=== PATIENT | female | born 1975 | race Caucasian/White ===

== ENCOUNTER 2017-04-24 17:37 | Emergency (ER) | payer OTHER ==
[2017-04-24 17:51] VITALS: RESP 16
--- NOTE | 2017-04-24 18:15 | CPEKG ---
Heart Rate: 83 RR Interval: 723 P-R Interval: 168 QRSD Interval: 98 QT Interval: 364 QTC Interval: 428 P Pearson: 56 QRS Pearson: 31 T Wave Pearson: 33 EKG Severity - NORMAL ECG - EKG Impression: SINUS RHYTHM Electronically Signed By: Tiki Fischer 24-Apr-2017 21:58:12
[2017-04-24 18:18] LABS: % IMMATURE GRANULYOCYTES 0.4 % (0.0-1.1); ABSOLUTE IMMATURE GRANULOCYTES 0.04 10^3/uL (0.00-0.10); ADD DIFF? NO; ADD MORPH? NO; ADD SCAN? NO; ATYPICAL LYMPHOCYTE FLAG 10 (0-99); FRAGMENT RBC FLAG 0 (0-99); HEMATOCRIT 37.4 % (38.0-47.0); LEFT SHIFT FLG 0 (0-99); LIPEMIA HEMOLYSIS FLAG 90 (0-99); MEAN CELL HEMOGLOBIN 31.1 pg (27.9-34.1); MEAN CELL HEMOGLOBIN CONCENTR. 34.8 g/dL (32.4-36.7); MEAN CELL VOLUME 89.5 fL (81.5-99.8); MEAN PLATELET VOLUME 9.3 fL (8.7-11.7); PLATELET CLUMPS FLAG 10 (0-99); PLATELET COUNT 306 10^3/uL (150-400); RED BLOOD CELL COUNT 4.18 10^6/uL (4.18-5.33)
[2017-04-24 18:32] LABS: ANION GAP 11 mEq/L (8-16); CALCIUM 9.4 mg/dL (8.5-10.4); CARBON DIOXIDE 25 mEq/l (22-31); CHLORIDE 102 mEq/L (97-110); GLOMERULAR FILTRATION RATE > 60; GLUCOSE 114 mg/dL (70-100); POTASSIUM 3.8 mEq/L (3.5-5.2); SODIUM 138 mEq/L (134-144)
[2017-04-24 18:43] LABS: TROPONIN I < 0.012 ng/mL (0.000-0.034)
--- NOTE | 2017-04-24 18:58 | EDPHY ---
H & P Stated Complaint: L ant sharp CP x1 day worse with deep breaths - Personal History LMP (Females 10-55): 1-7 Days Ago Current Tetanus/Diphtheria Vaccine: Unsure Current Tetanus Diphtheria and Acellular Pertussis (TDAP): Unsure - Medical/Surgical History Hx Asthma: No Hx Chronic Respiratory Disease: No Hx Diabetes: No Hx Cardiac Disease: No Hx Renal Disease: No Hx Cirrhosis: No Hx Alcoholism: No Hx HIV/AIDS: No Hx Splenectomy or Spleen Trauma: No Other PMH: denies - Social History Smoking Status: Never smoked Time Seen by Provider: 04/24/17 17:57 HPI/ROS: Chief complaint: Left shoulder and chest pain History of present illness: This is a 41-year-old female who presents to the emergency department for left shoulder and chest pain. Patient reports 2 days ago she woke up and her left shoulder was bothering her. She states this remained sore since then. It is worse with movement. However today the pain started to radiate down into her chest. Again she describes a soreness. Soreness is worse with movement, laughing and deep breathing. She denies associated shortness of breath at rest. She denies fever or cold symptoms. She denies pain or swelling in her legs. Review of systems: A 10 point review of systems was obtained and other than described above was negative (Michael Polanco) - Physical Exam Exam: General Appearance: Alert, nontoxic. Eyes: Pupils equal and round no pallor or injection. ENT, Mouth: Mucous membranes moist. Respiratory: There are no retractions, lungs are clear to auscultation. Cardiovascular: Regular rate and rhythm. Gastrointestinal: Abdomen is soft and non tender, no masses, bowel sounds normal. Neurological: Alert and oriented x4. Cranial nerves 2-12 grossly intact. Strength and sensation intact and symmetrical. Skin: Warm and dry, no rashes. Musculoskeletal: Neck is supple non tender. Head anterior shoulder is mildly tender to palpation. Left lateral chest wall is also tender to palpation without crepitus or subcutaneous air. Extremities are symmetrical, full range of motion. Psychiatric: Patient is oriented X 3, there is no agitation. (Michael Polanco) Constitutional: Initial Vital Signs Temperature (C) 37.2 C 04/24/17 17:48 Heart Rate 82 04/24/17 17:48 Respiratory Rate 16 04/24/17 17:48 Blood Pressure 123/76 H 04/24/17 17:48 O2 Sat (%) 98 04/24/17 17:48 O2 Delivery Mode Room Air Allergies/Adverse Reactions: No Known Allergies Allergy (Verified 04/24/17 17:46) Home Medications: Medication Instructions Recorded NK [No Known Home Meds] 04/24/17 Medical Decision Making - Diagnostics EKG Interpretation: 12 lead EKG is interpreted in Trace master View by emergency department physician. Normal sinus rhythm with no acute ischemic changes. (Tiki Fischer ) ED Course/Re-evaluation: Patient discussed with my secondary supervising physician Dr. Tiki Fischer. Patient presents to the emergency department for left shoulder and subsequent left chest pain. She is nontoxic. Afebrile and vital signs are stable. She has no cardiac risk factors. Pain is reproducible on palpation. Evaluation is unremarkable. My suspicion for serious underlying pathology is low. Patient is discharged home. Home care is discussed. She is to follow up with her primary care doctor for recheck. Return precautions are given. (Michael Polanco) The patient was evaluated and managed by the physician registered dental assistant. I have reviewed this chart and I agree with the findings and plan of care as documented , as indicated by my signature. I am the secondary supervising physician. ( Tiki Fischer) Differential Diagnosis: Included but not limited to musculoskeletal pain, pneumothorax, pulmonary infections, pulmonary embolism, cardiac dysrhythmia, ACS (Michael Polanco) - Data Points Laboratory Results: Laboratory Results 04/24/17 18:10 04/24/17 18:10 Departure - Departure Disposition: Home, Routine, Self-Care Clinical Impression: Chest pain Condition: Good Instructions: Chest Pain (ED) Additional Instructions: Follow-up with her primary care doctor for continued evaluation and care. You can use [id number] ibuprofen, 600 mg every 8 hours as needed for pain. If symptoms worsen or new symptoms develop return to the emergency room for recheck. Referrals: Michelle Lopez MD [Primary Care Provider] - As per Instructions
[2017-04-24 19:17] VITALS: BP 133/74; PULSE 81; TEMP 98.8; O2SAT 96
== END 2017-04-24 19:15 | disposition home or self-care (01) ==
DX: R07.9 Chest pain, unspecified (principal)